=== PATIENT | male | born 1980 | race Caucasian/White ===

== ENCOUNTER → 2017-12-07 19:47 | Outpatient (CLI) | payer OTHER | END | disposition home or self-care (01) | LOC: D.SLEEP 12-06 20:30 | DX: G47.33 Obstructive sleep apnea (adult) (pediatric) (principal) ==

== ENCOUNTER 2017-12-23 14:00 | Outpatient (CLI) | payer OTHER | END 2017-12-23 23:59 | disposition home or self-care (01) | LOC: D.RT 14:00 | DX: R06.02 Shortness of breath (principal) ==